=== PATIENT | female | born 1945 | race Caucasian/White ===

== ENCOUNTER → 2021-11-28 18:11 | Outpatient (CLI) | payer MEDICARE, SELFPAY ==
[2021-11-28 14:07] LABS: Basophils # 0.1 K/mm3 (0-0.2); Eosinophils # 0.2 K/mm3 (0.0-0.4); Eosinophils % 2.3 % (0.1-12.0); Hematocrit 43.4 % (37.0-47.0); Hemoglobin 13.8 g/dL (12.2-16.2); Lymphocytes % 26.3 % (10-50); Mean Corpuscular HGB Conc 31.9 g/dL (31.8-35.4); Mean Corpuscular Hemoglobin 32.8 pg (27.0-31.2); Mean Corpuscular Volume 102.9 fl (81-99); Mean Platelet Volume 9.4 fl (7.4-10.4); Monocytes # 0.5 K/mm3 (0.1-1.0); Monocytes % 6.4 % (1.7-9.3); Neutrophils # 4.9 K/mm3 (1.8-7.8); Platelet Count 397 K/mm3 (142-424); Red Blood Count 4.21 M/mm3 (4.20-5.40); Red Cell Distribution Width 12.9 % (11.5-17.5); White Blood Count 7.7 K/mm3 (4.8-10.8)
[2021-11-28 14:48] LABS: Alanine Aminotransferase 23 U/L (12-78); Albumin Level 4.8 g/dl (3.5-5.0); Albumin/Globulin Ratio 1.7 (1.1-1.8); Alkaline Phosphatase 79 U/L (38-126); Anion Gap 18.6 mEq/L (5-15); Aspartate Amino Transferase 42 U/L (14-36); Bilirubin,Total 0.6 mg/dl (0.2-1.3); Blood Urea Nitrogen 24 mg/dl (7-17); Calcium 9.9 mg/dl (8.4-10.2); Carbon Dioxide 24 mmol/L (22.0-30.0); Chloride 89 mmol/L (98-107); Chol/HDL Ratio 3.2 (1-3.5); Cholesterol 206 mg/dl (140-200); Estimated Glomerular Filt Rate 61 ml/min (>60); GFR (African American) 74 ML/MIN (>60); Globulin 2.8 g/dL (1.3-3.2); Glucose 92 mg/dl (74-100); HDL Cholesterol 64 mg/dl (40-60); Potassium 5.6 mmoL/L (3.5-5.1); Sodium 126 mmol/L (136-145); Total Protein,Serum 7.6 g/dl (6.3-8.2); Triglycerides 176 mg/dl (30-150); VLDL Cholesterol 35 mg/dL (0-40)
[2021-11-28 15:05] LABS: Direct LDL Cholesterol 81.77 mg/dL (100-129)
[2021-11-28 15:06] LABS: 25-OH Vitamin D, Total 47.8 ng/mL (30-100)
== END ==
PROVIDERS: Visit Provider Physician Assistant
DX: I10 Essential (primary) hypertension (principal); R53.83 Other fatigue
CPT/HCPCS: 80053; 80061; 82306; 84443; 85025

== ENCOUNTER → 2021-12-07 15:02 | Outpatient (CLI) | payer MEDICARE, SELFPAY ==
[2021-12-07 14:25] LABS: Anion Gap 16.3 mEq/L (5-15); Blood Urea Nitrogen 23 mg/dl (7-17); Calcium 9.9 mg/dl (8.4-10.2); Carbon Dioxide 26 mmol/L (22.0-30.0); Chloride 85 mmol/L (98-107); Estimated Glomerular Filt Rate 54 ml/min (>60); GFR (African American) 65 ML/MIN (>60); Glucose 104 mg/dl (74-100); Potassium 5.3 mmoL/L (3.5-5.1); Sodium 122 mmol/L (136-145)
== END ==
PROVIDERS: Visit Provider Physician Assistant
DX: E87.5 Hyperkalemia (principal)
CPT/HCPCS: 80048

== ENCOUNTER 2022-05-07 08:46 | Emergency (ER) | payer MEDICARE, SELFPAY ==
[2022-05-07 08:51] VITALS: BP 125/66; PULSE 61; RESP 18; TEMP 36.4; O2SAT 100; BMI 23.1
[2022-05-07 08:52] VITALS: BP 125/66; PULSE 76; O2SAT 100
--- NOTE | 2022-05-07 08:58 | PC.NURSE ---
ER at ; family at
--- NOTE | 2022-05-07 09:02 | XR_ITS ---
FINAL REPORT CLINICAL HISTORY: pain, redness FINDINGS: RIGHT FOOT: Three views of the right foot were obtained. There is no acute fracture or dislocation. There is mild degenerative change. There are calcaneal spurs. There is a chronic calcification adjacent to the 5th metatarsal. IMPRESSION: No acute bony abnormality. Reviewed, Interpreted and Dictated by Alphonso Geradro III, MD Transcribed by Laly De Luna Authenticated and [facility]
--- NOTE | 2022-05-07 09:03 | CA_ITS ---
FINAL REPORT TECHNIQUE: Color Doppler, duplex Doppler and compression sonography of the right lower extremity venous system was performed. CLINICAL HISTORY: SWELLING REDNESS LATERAL RIGHT FOOT,NKI,PT ON BABY ASA,HTN FINDINGS: There is no evidence of deep venous thrombosis from the level of the groin to the calf. The veins are patent and compressible. IMPRESSION: No evidence of deep venous thrombosis right lower extremity. Reviewed, Interpreted and Dictated by Alphonso Gerardo III, MD Transcribed by Laly De Luna Authenticated and [facility]
--- NOTE | 2022-05-07 09:12 | PC.NURSE ---
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
--- NOTE | 2022-05-07 09:20 | PC.NURSE ---
placed pt on heart monitor due to an irregular rhythm that was noted, MD aware and ordered EKG
[2022-05-07 09:21] VITALS: BP 142/74; PULSE 73; O2SAT 99
--- NOTE | 2022-05-07 09:22 | PC.NURSE ---
Reported to Jolene Hull RN that patient's HR was fluctuating between 40's-80's. Jolene Hull, RN hooked patient up to cardiac rn.
[2022-05-07 09:24] LABS: Basophils # 0.2 K/mm3 (0-0.2); Eosinophils # 0.2 K/mm3 (0.0-0.4); Eosinophils % 2.7 % (0.1-12.0); Hematocrit 47.9 % (37.0-47.0); Hemoglobin 14.9 g/dL (12.2-16.2); Lymphocytes # 1.7 K/mm3 (0.7-4.5); Lymphocytes % 19.2 % (10-50); Mean Corpuscular HGB Conc 31.1 g/dL (31.8-35.4); Mean Corpuscular Hemoglobin 32.3 pg (27.0-31.2); Mean Corpuscular Volume 103.9 fl (81-99); Mean Platelet Volume 9.2 fl (7.4-10.4); Monocytes # 0.7 K/mm3 (0.1-1.0); Monocytes % 7.7 % (1.7-9.3); Neutrophils # 6.2 K/mm3 (1.8-7.8); Neutrophils % 68.3 % (37.0-80.0); Platelet Count 293 K/mm3 (142-424); Red Blood Count 4.61 M/mm3 (4.20-5.40); Red Cell Distribution Width 12.8 % (11.5-17.5); White Blood Count 9.1 K/mm3 (4.8-10.8)
--- NOTE | 2022-05-07 09:30 | PC.NURSE ---
Notified Carolann in radiology that her doppler was complete and she is ready for her xray
--- NOTE | 2022-05-07 09:38 | ECG_ITS ---
APPROVED REPORT Exam: Resting ECG HR:71 bpm ECG Measurements Heart Rate 71 AXES OR 131 P 77 QRSd 73 QRS 51 QT 385 T 66 QTc 407 Conclusion SINUS RHYTHM WITH FREQUENT VENTRICULAR PREMATURE COMPLEXES MODERATE ST DEPRESSION [0.05+ mV ST DEPRESSION] ABNORMAL ECG UNCONFIRMED REPORT Electronically signed by : Quirino Ford MD 05/07/2022 19:53:06
--- NOTE | 2022-05-07 09:45 | PC.NURSE ---
rounded on pt, no needs at this time, denies needing any pain medicine at this time, family at bs
[2022-05-07 09:49] LABS: Chloride 108 mmol/L (98-107)
[2022-05-07 09:50] LABS: Potassium 4.8 mmoL/L (3.5-5.1); Sodium 141 mmol/L (136-145)
[2022-05-07 09:51] VITALS: BP 137/69; PULSE 68; O2SAT 98
[2022-05-07 09:52] LABS: Alanine Aminotransferase 25 U/L (12-78); Alkaline Phosphatase 105 U/L (38-126); Aspartate Amino Transferase 39 U/L (14-36); Bilirubin,Total 0.4 mg/dl (0.2-1.3); Blood Urea Nitrogen 41 mg/dl (7-17); Creatinine Clearance Estimated 39 mL/min (50-200); Estimated Glomerular Filt Rate 44 ml/min (>60); GFR (African American) 53 ML/MIN (>60)
--- NOTE | 2022-05-07 09:52 | [facility].EDGENADL ---
ED Disposition Clinical Impression: Cellulitis of foot, right Gout of right foot Qualifiers: Gout etiology: unspecified cause Chronicity: acute Qualified Code(s): M10.9 - Gout, unspecified Disposition: Home, Self-Care Condition on Discharge: Good Instructions: DI for Gout Prescriptions: cephALEXin [Cephalexin 500mg Tab] 500 mg PO QID #28 tab [facility]: [id number] methylPREDNISolone [Medrol 4mg tab] 4 mg PO DIRECTED #21 tab Transmission [facility]: [id number] Referrals: Jade Chen PA [Primary Care Provider] - - Critical Care Critical Care Time: No Attestation: On 05/07/22, the high probability of a clinically significant, sudden or life threatening deterioration of the following system(s) required my full and direct attention, intervention and personal management. The time I documented below is in addition to time spent performing reported procedures but includes the following listed in this critical care notation. Medical Decision Making - Medical Records Medical records reviewed: Yes: I reviewed the patient's medical records. - Conrad Inquiry Pt receiving controlled substance: No Vital Signs: 05/07/22 08:51 05/07/22 08:52 05/07/22 09:21 Temperature 97.5 F L Temperature Source Oral Pulse Rate 76 73 Pulse Rate [Left Radial] 61 Respiratory Rate 18 Blood Pressure 125/66 142/74 H Blood Pressure [Right Arm] 125/66 Blood Pressure Mean 85 96 Blood Pressure Mean [Right Arm] 85 Blood Pressure Source [Right Arm] Automatic Cuff Blood Pressure Position [Right Arm] Sitting 02 Sat by Pulse Oximetry 100 100 99 Oxygen Delivery Method Room Air 05/07/22 09:51 Temperature Temperature Source Pulse Rate 68 Pulse Rate [Left Radial] Respiratory Rate Blood Pressure 137/69 Blood Pressure [Right Arm] Blood Pressure Mean 93 Blood Pressure Mean [Right Arm] Blood Pressure Source [Right Arm] Blood Pressure Position [Right Arm] 02 Sat by Pulse Oximetry 98 Oxygen Delivery Method Room Air - Lab Data Lab Results 05/07/22 09:10: WBC 9.1, RBC 4.61, Hgb 14.9, Hct 47.9 H, MCV 103.9 H, MCH 32.3 H, MCHC 31.1 L, RDW 12.8, Plt Count 293, MPV 9.2, Neut % (Auto) 68.3, Lymph % (Auto) 19.2, Ferry % (Auto) 7.7, Eos % (Auto) 2.7, Baso % (Auto) 2.0, Neut # (Auto) 6.2, Lymph # (Auto) 1.7, Ferry # (Auto) 0.7, Eos # (Auto) 0.2, Baso # (Auto) 0.2 05/07/22 09:10: Sodium 141, Potassium 4.8, Chloride 108 H, Carbon Dioxide 23, Anion Gap 14.8, BUN 41 H, Creatinine 1.20 H, Estimated Creat Clear 39, Estimated GFR 44 L, Est GFR ( Amer) 53 L, Glucose 136 H, Calcium 10.4 H, Total Bilirubin 0.4, AST 39 H, ALT 25, Alkaline Phosphatase 105, Total Protein 8.5 H, Albumin 4.8, Globulin 3.7 H, Albumin/Globulin Ratio 1.3 Result diagrams: 05/07/22 09:10 05/07/22 09:10 Orders (Tests/Meds): ED MEDICATIONS Discontinued Medications Generic Name Dose Route Start Last Admin Trade Name Freq PRN Reason Stop Dose Admin Dexamethasone 10 mg 05/07/22 10:04 05/07/22 10:11 Dexamethasone 4mg Tablet PO 05/07/22 10:05 10 mg ONCE ONE Administration ORDERS Category Date Time Status XR foot RT min 3V Stat Exams 05/07/22 09:02 Taken - Radiology Data #1 Image(s): Foot/Toes Image Reviewed: Yes I reviewed the patient's radiology results, Yes I reviewed the patient's radiology image, Yes I have reviewed radiologist's interpretation Preliminary Findings: Normal/NAD, No Fracture Seen - US Data US Images: Lower Extremity ED US Reviewed: Yes: I have reviewed the patient's US results, I have viewed radiologist's interpretation Preliminary Findings: Normal/NAD - ECG Data Tracing #1 I reviewed this ECG and interpreted as documented below: Normal ventricular rate of 71 bpm, FL interval 131 ms, normal QTC. Sinus rhythm with frequent PVCs. ECG initial impression date: 05/07/22 ECG initial impression time: 09:38 - Reevaluation(s)
[2022-05-07 09:53] LABS: Albumin Level 4.8 g/dl (3.5-5.0); Albumin/Globulin Ratio 1.3 (1.1-1.8); Anion Gap 14.8 mEq/L (5-15); Calcium 10.4 mg/dl (8.4-10.2); Carbon Dioxide 23 mmol/L (22.0-30.0); Globulin 3.7 g/dL (1.3-3.2); Glucose 136 mg/dl (74-100); Total Protein,Serum 8.5 g/dl (6.3-8.2)
--- NOTE | 2022-05-07 09:59 | PC.NURSE ---
at bs with updated poc
[2022-05-07 10:36] VITALS: BP 145/73; PULSE 68; RESP 16; TEMP 36.4; O2SAT 98
== END 2022-05-07 10:37 | disposition home or self-care (01) ==
PROVIDERS: Emergency Provider Emergency Medicine; PCP Physician Assistant
DX: M10.9 Gout, unspecified (principal); L03.115 Cellulitis of right lower limb; I10 Essential (primary) hypertension; E78.5 Hyperlipidemia, unspecified
CPT/HCPCS: 73630; 80053; 85025; 93005; 93971; 99284

== ENCOUNTER → 2022-08-08 09:21 | Outpatient (CLI) | payer MEDICARE, SELFPAY ==
[2022-08-08 15:09] LABS: Basophils # 0.1 K/mm3 (0-0.2); Basophils % 1.2 % (0.1-2.0); Eosinophils # 0.3 K/mm3 (0.0-0.4); Eosinophils % 4.3 % (0.1-12.0); Hematocrit 48.9 % (37.0-47.0); Hemoglobin 15.1 g/dL (12.2-16.2); Lymphocytes # 2.2 K/mm3 (0.7-4.5); Lymphocytes % 30.1 % (10-50); Mean Corpuscular HGB Conc 30.8 g/dL (31.8-35.4); Mean Corpuscular Hemoglobin 32.8 pg (27.0-31.2); Mean Corpuscular Volume 106.3 fl (81-99); Mean Platelet Volume 10.9 fl (7.4-10.4); Monocytes # 0.5 K/mm3 (0.1-1.0); Monocytes % 6.5 % (1.7-9.3); Neutrophils # 4.3 K/mm3 (1.8-7.8); Neutrophils % 57.9 % (37.0-80.0); Platelet Count 264 K/mm3 (142-424); Red Cell Distribution Width 13.6 % (11.5-17.5); White Blood Count 7.3 K/mm3 (4.8-10.8)
[2022-08-08 15:24] LABS: Alanine Aminotransferase 32 U/L (12-78); Albumin/Globulin Ratio 1.6 (1.1-1.8); Alkaline Phosphatase 102 U/L (38-126); Anion Gap 19.7 mEq/L (5-15); Aspartate Amino Transferase 50 U/L (14-36); Bilirubin,Total 0.9 mg/dl (0.2-1.3); Blood Urea Nitrogen 30 mg/dl (7-17); Calcium 10.6 mg/dl (8.4-10.2); Carbon Dioxide 29 mmol/L (22.0-30.0); Chloride 97 mmol/L (98-107); Chol/HDL Ratio 2.8 (1-3.5); Cholesterol 241 mg/dl (140-200); Estimated Glomerular Filt Rate 48 ml/min (>60); GFR (African American) 58 ML/MIN (>60); Globulin 3.1 g/dL (1.3-3.2); Glucose 101 mg/dl (74-100); HDL Cholesterol 86 mg/dl (40-60); Potassium 4.7 mmoL/L (3.5-5.1); Sodium 141 mmol/L (136-145); Total Protein,Serum 8.1 g/dl (6.3-8.2); Triglycerides 153 mg/dl (30-150); VLDL Cholesterol 31 mg/dL (0-40)
[2022-08-08 17:08] LABS: Intact Parathyroid Hormone 88.1 pg/mL (7.5-53.5)
[2022-08-10 12:10] LABS: Calcium, Ionized 5.5 mg/dL (4.5-5.6)
== END ==
PROVIDERS: PCP Physician Assistant; Visit Provider Physician Assistant
DX: I10 Essential (primary) hypertension (principal); E83.52 Hypercalcemia
CPT/HCPCS: 80053; 80061; 82330; 83970; 84443; 85025

== ENCOUNTER → 2022-08-09 13:30 | Outpatient (CLI) | payer MEDICARE, SELFPAY ==
[2022-08-09 10:20] LABS: 25-OH Vitamin D, Total 39.1 ng/mL (30-100)
[2022-08-09 17:32] LABS: Free T4 (Free Thyroxine) 1.58 ng/dl (0.78-2.19)
[2022-08-11 14:51] LABS: Triiodothyronine (T3) Total 118 ng/dL (71-180)
[2022-08-15 16:12] LABS: Thyroid Stimulating Immunoglob <0.10 IU/L (0.00-0.55)
[2022-08-16 10:43] LABS: Thyroid Peroxidase Antibodies <8 IU/mL (0-34)
== END ==
PROVIDERS: PCP Physician Assistant; Visit Provider Physician Assistant
DX: E55.9 Vitamin D deficiency, unspecified (principal); I10 Essential (primary) hypertension; R79.89 Other specified abnormal findings of blood chemistry
CPT/HCPCS: 82306; 84439; 84445; 84480; 86376

== ENCOUNTER 2023-12-04 11:12 | Outpatient (CLI) | payer MEDICARE, SELFPAY ==
[2023-12-04 11:34] LABS: Basophils # 0.1 K/mm3 (0-0.2); Basophils % 0.8 % (0.1-2.0); Eosinophils # 0.3 K/mm3 (0.0-0.4); Eosinophils % 3.7 % (0.1-12.0); Hematocrit 48.7 % (37.0-47.0); Hemoglobin 15.4 g/dL (12.2-16.2); Lymphocytes # 2.6 K/mm3 (0.7-4.5); Lymphocytes % 31.7 % (10-50); Mean Corpuscular HGB Conc 31.5 g/dL (31.8-35.4); Mean Corpuscular Hemoglobin 33.8 pg (27.0-31.2); Mean Corpuscular Volume 107.1 fl (81-99); Mean Platelet Volume 9.5 fl (7.4-10.4); Monocytes # 0.5 K/mm3 (0.1-1.0); Neutrophils # 4.7 K/mm3 (1.8-7.8); Neutrophils % 57.9 % (37.0-80.0); Platelet Count 232 K/mm3 (142-424); Red Blood Count 4.55 M/mm3 (4.20-5.40); Red Cell Distribution Width 13.4 % (11.5-17.5); White Blood Count 8.1 K/mm3 (4.8-10.8)
[2023-12-04 11:41] LABS: Alanine Aminotransferase 29 U/L (12-78); Albumin Level 4.6 g/dl (3.5-5.0); Albumin/Globulin Ratio 1.6 (1.1-1.8); Alkaline Phosphatase 90 U/L (38-126); Anion Gap 14.5 mEq/L (5-15); Aspartate Amino Transferase 43 U/L (14-36); Bilirubin,Total 0.9 mg/dl (0.2-1.3); Blood Urea Nitrogen 28 mg/dl (7-17); Carbon Dioxide 27 mmol/L (22.0-30.0); Chloride 103 mmol/L (98-107); Chol/HDL Ratio 2.9 (1-3.5); Cholesterol 229 mg/dl (140-200); Estimated Glomerular Filt Rate 48 ml/min (>60); GFR (African American) 58 ML/MIN (>60); Globulin 2.9 g/dL (1.3-3.2); Glucose 107 mg/dl (74-100); HDL Cholesterol 78 mg/dl (40-60); Potassium 4.5 mmoL/L (3.5-5.1); Sodium 140 mmol/L (136-145); Total Protein,Serum 7.5 g/dl (6.3-8.2); Triglycerides 121 mg/dl (30-150); VLDL Cholesterol 24 mg/dL (0-40)
[2023-12-04 11:54] LABS: Direct LDL Cholesterol 103.29 mg/dL (100-129)
[2023-12-04 12:16] LABS: Thyroid Stimulating Hormone 0.19 uIU/mL (0.465-4.68)
== END 2023-12-04 23:59 ==
LOC: LAB.DROPOF 11:12
PROVIDERS: PCP Physician Assistant; Visit Provider Physician Assistant
DX: E55.9 Vitamin D deficiency, unspecified (principal); E78.5 Hyperlipidemia, unspecified; Z79.899 Other long term (current) drug therapy
CPT/HCPCS: 80053; 80061; 82306; 84443; 85025